=== PATIENT | female | born 1960 | race Caucasian/White ===

== ENCOUNTER 2016-12-28 15:47 | Emergency (ER) | payer OTHER ==
[~2016-12-28] VITALS: Ht 160 cm; Wt 78.5 kg
[~2016-12-28 15:47] MED LIST: DIAZ10TA89 PO; NAPR-260 PO; VICES PO
[2016-12-28 16:06] VITALS: Ht 160 cm; Wt 78.5 kg
[2016-12-28] MEDS ORDERED: KETOROLAC 30 MG INJ IM STA (16:39)
[2016-12-28] MEDS ORDERED: KETOROLAC 30 MG INJ IV STA (16:45)
[2016-12-28 17:04] LABS: ADD SCAN DIFF NO
[2016-12-28 17:05] LABS: BASOPHILS % 0.5 % (0.0-2.0); EOSINOPHILS # 0.3 10^3/ul (0.0-0.5); HEMOGLOBIN 12.7 g/dl (12.0-16.0); LYMPHOCYTES # 2.4 10^3/ul (0.8-2.9); LYMPHOCYTES % 32.3 % (15.0-51.0); MEAN CORPUSCULAR HEMOGLOBIN 29.4 pg (29.0-33.0); MEAN CORPUSCULAR HGB CONC 32.6 g/dl (32.0-37.0); MEAN CORPUSCULAR VOLUME 90.3 fl (82.0-101.0); MONOCYTE # 0.6 10^3/ul (0.3-0.9); NEUTROPHIL # 4.1 10^3/ul (1.6-7.5); NEUTROPHILS % 55.1 % (39.0-77.0); PLATELET COUNT 258 10^3/UL (140-415); RED BLOOD COUNT 4.32 10^6/ul (4.20-5.40); RED CELL DISTRIBUTION WIDTH 14.7 % (11.5-14.5); WHITE BLOOD COUNT 7.4 10^3/ul (4.8-10.8)
[2016-12-28 17:25] LABS: INR 0.91; PROTIME 12.3 Sec (12.2-14.2)
[2016-12-28 17:26] LABS: PARTIAL THROMBOPLASTIN TIME 28.5 Sec (25.0-35.0)
[2016-12-28 17:29] LABS: ANION GAP 14 (8-16); BLOOD UREA NITROGEN 12 mg/dl (7-20); CALCIUM 9.9 mg/dl (8.4-10.2); CARBON DIOXIDE 28 mmol/L (21-31); CHLORIDE 102 mmol/L (97-110); CREATININE 0.64 mg/dl (0.44-1.00); GLUCOSE 89 mg/dl (70-220); SODIUM 140 mmol/L (135-144)
[2016-12-28 17:41] LABS: ADD UMIC NO; UR ASCORBIC ACID NEGATIVE (NEGATIVE); UR BILIRUBIN (Dip) NEGATIVE (NEGATIVE); UR BLOOD (Dip) NEGATIVE (NEGATIVE); UR CLARITY CLEAR (CLEAR); UR COLOR COLORLESS (YELLOW); UR GLUCOSE (Dip) NEGATIVE (NEGATIVE); UR KETONES (Dip) NEGATIVE (NEGATIVE); UR LEUKOCYTE ESTERASE (Dip) NEGATIVE Leu/ul (NEGATIVE); UR NITRITE (Dip) NEGATIVE (NEGATIVE); UR SPECIFIC GRAVITY (Dip) 1.003 (1.003-1.030); UR TOTAL PROTEIN (Dip) NEGATIVE (NEGATIVE); UR UROBILINOGEN (Dip) NEGATIVE (NEGATIVE)
--- NOTE | 2016-12-28 17:47 | RADRPT ---
PROCEDURE: XR Chest. CLINICAL INDICATION: Chest pain TECHNIQUE: A single portable view of the chest was obtained. COMPARISON: None FINDINGS: The cardiomediastinal silhouette is within normal limits. The lungs and pleural spaces are clear. The soft tissues and osseous structures are unremarkable. IMPRESSION: No acute cardiopulmonary disease. RPTAT: HPNM Physician Gavino Date Time Electronically viewed and signed by Wiliam Pelayo Physician on 12/28/2016 17:47 /
[2016-12-28 18:06] LABS: TROPONIN-I < 0.012 ng/ml (0.00-0.12)
[2016-12-28] MEDS ORDERED: NAPR-688 PO (18:11)
[2016-12-28] MEDS ORDERED: CYCL-319 PO (18:11)
--- NOTE | 2016-12-28 18:20 | ERD ---
ER Documentation Chief Complaint Date/Time DATE: 12/28/16 TIME: 18:16 Chief Complaint neck pain x 3 days; sob HPI Patient is a 56-year-old female who presents with 3 days of right-sided neck pain radiates to her right upper extremity. She describes the pain as intermittent and sharp and worse with movement. Denies any numbness or tingling. She has not taken any medications for this. She denies any trauma. She also states that today she was driving in her car and she began to feel short of breath and had some chest pressure. She states that this happened before and she has seen her doctor and was told it was stressed. She does believe that it may be related to stress as she does feel stressed out and she is starting a new job on Friday. At this time she has no chest pain or shortness of breath. She denies any palpitations or diaphoresis. ROS All systems reviewed and are negative except as per history of present illness. Medications Home Meds Active Scripts Cyclobenzaprine Hcl* (Cyclobenzaprine Hcl*) 10 Mg Tablet, 10 MG PO QHS Y for MUSCLE SPASMS, #20 TAB Prov:CHANDA WORTHY PA-C 12/28/16 Naproxen* (Naproxen*) 500 Mg Tablet, 500 MG PO BID Y for PAIN, #30 TAB Prov:CHANDA WORTHY PA-C 12/28/16 Reported Medications Naproxen* (Naprosyn*) 500 Mg Tablet, 500 MG PO PRN 02/07/11 Diazepam (Valium) 10 Mg Tablet, 10 MG PO PRN HS 02/07/11 Acetaminophen/Hydrocodone (Vicodin Es) 1 Tab Tab, 1 TAB PO PRN 02/07/11 Allergies Allergies: Coded Allergies: ibuprofen (Verified Allergy, Mild, RASHES/"RED SPOTS" ALL OVER BODY, ) PMhx/Soc Medical and Surgical Hx: pt denies Medical Hx, pt denies Surgical Hx History of Surgery: Yes Anesthesia Reaction: No Hx Neurological Disorder: No Hx Respiratory Disorders: No Hx Cardiac Disorders: No Hx Psychiatric Problems: No Hx Miscellaneous Medical Probl: No Hx Alcohol Use: No Hx Substance Use: No Hx Tobacco Use: No Smoking Status: Never smoker FmHx Family History: No diabetes Physical Exam Vitals Vital Signs Date Time Temp Pulse Resp B/P Pulse Ox O2 Delivery O2 Flow Rate FiO2 12/28/16 16:06 98.5 78 18 133/75 98 Physical Exam General: well developed, well nourished, alert, nontoxic, no distress Head: normocephalic, atraumatic Eyes: PERRL, normal conjunctiva Neck: Supple, right-sided paraspinal tenderness, no lymphadenopathy, no midline tenderness Respiratory: Clear to auscaultation bilaterally, speaks in full sentences, no use of accesory muscles or labored breathing, no rales, ronchi, or wheezing Cardiovascular: RRR, No murmurs GI: soft, non tender, non distended, negative murphys sign, negative mcburneys point tenderness, no cva tenderness bilaterally, no rebound or guarding Back: no midline tenderness, no step offs or bony abnormalities, sensation to light touch in tact Result Diagram: 12/28/16 1605 12/28/16 1605 Results 24 hrs Laboratory Tests Test 12/28/16 16:05 12/28/16 16:35 White Blood Count 7.410^3/ul Red Blood Count 4.3210^6/ul Hemoglobin 12.7g/dl Hematocrit 39.0% Mean Corpuscular Volume 90.3fl Mean Corpuscular Hemoglobin 29.4pg Mean Corpuscular Hemoglobin Concent 32.6g/dl Red Cell Distribution Width 14.7% Platelet Count 22796^3/UL Mean Platelet Volume 10.0fl Neutrophils % 55.1% Lymphocytes % 32.3% Monocytes % 8.0% Eosinophils % 4.0% Basophils % 0.5% Nucleated Red Blood Cells % 0.0/100WBC Neutrophils # 4.110^3/ul Lymphocytes # 2.410^3/ul Monocytes # 0.610^3/ul Eosinophils # 0.310^3/ul Basophils # 0.010^3/ul Nucleated Red Blood Cells # 0.010^3/ul Prothrombin Time 12.3Sec Prothrombin Time Ratio 1.0 INR International Normalized Ratio 0.91 Activated Partial Thromboplast Time 28.5Sec Sodium Level 140mmol/L Potassium Level 4.0mmol/L Chloride Level 102mmol/L Carbon Dioxide Level 28mmol/L Anion Gap 14 Blood Urea Nitrogen 12mg/dl Creatinine 0.64mg/dl Glucose Level 89mg/dl Calcium Level 9.9mg/dl Troponin I < 0.012ng/ml Urine Color COLORLESS Urine Clarity CLEAR Urine pH 6.0 Urine Specific [place] 1.003 Urine Ketones NEGATIVEmg/dL Urine Nitrite NEGATIVEmg/dL Urine Bilirubin NEGATIVEmg/dL Urine Urobilinogen NEGATIVEmg/dL Urine Leukocyte Esterase NEGATIVELeu/ul Urine Hemoglobin NEGATIVEmg/dL Urine Glucose NEGATIVEmg/dL Urine Total Protein NEGATIVEmg/dl Current Medications Medications (Trade) Dose Ordered Sig/Chitra Route PRN Reason Start Time Stop Time Status Last Admin Dose Admin Ketorolac Tromethamine (Toradol) 30 mg ONCE STAT IM 12/28/16 16:39 12/28/16 16:40 Cancel Ketorolac Tromethamine (Toradol) 30 mg ONCE STAT IV 12/28/16 16:45 12/28/16 16:46 DC 12/28/16 16:50 Procedures/MDM Patient presents with neck and right upper extremity pain is most likely cervical radiculopathy. There is no trauma. She is neurovascular intact. She did state that earlier today when she was driving she had an episode where she felt some chest pressure and shortness of breath. She thinks it may be related to stress that she is starting a new job on Friday and has had a history of anxiety in the past. EKG was performed which was within normal limits with no evidence of ST elevation or acute ischemic changes with a rate of 66. All her blood work was unremarkable including troponin which was negative. Patient was given Toradol and at discharge she stated she has much relief of her neck pain with the Toradol. I do believe this is most likely musculoskeletal and stress related and less suspicious for cardiac etiology. She is discharged with anti- inflammatories and muscle relaxer. Recommended this patient follow up with her primary care doctor within 48 hours or return to the emergency room for any worsening of symptoms. However this time I do believe there is suitable for outpatient management. I answered all their questions and they agreed with the plan and were discharged home. Departure Diagnosis: Primary Impression: Cervical radiculopathy Additional Impression: Anxiety Condition: Stable Patient Instructions: Anxiety Reaction, Neck Pain, No Trauma Additional Instructions: Llame al doctor MAANA y jonathan joana ISABELLE PARA DENTRO DE 1-2 GRAHAM.Dgale a la secretaria que nosotros le instruimos hacer esta isabelle.Avise o llame si jones condicin se empeora antes de la isabelle. Regresa aqui si peor o no mejor. CHANDA WORTHY PA-C Dec 28, 2016 18:20
[2016-12-28 18:26] VITALS: BP 143/74; PULSE 60; RESP 18; TEMP 98
== END 2016-12-28 18:20 | disposition home or self-care (01) ==
LOC: FTE 15:47
DX: M54.12 Radiculopathy, cervical region (principal); F41.9 Anxiety disorder, unspecified; R07.9 Chest pain, unspecified
CPT/HCPCS: 36415; 71010; 80048; 81003; 84484; 85025; 85610; 85730; 93005; 96374; J1885; Z7502

== ENCOUNTER 2017-04-02 13:28 | Day surgery (SDC) | payer OTHER ==
[~2017-04-02] VITALS: Ht 157.5 cm; Wt 76.4 kg
[~2017-04-02 13:28] MED LIST changes: +CYCL-319 PO; +NAPR-688 PO
[2017-04-02 14:22] VITALS: Ht 157.5 cm; Wt 76.4 kg
[2017-04-02] MEDS ORDERED: LEVO25TA53 PO (14:29)
[2017-04-02] MEDS ORDERED: ATOR10TA65 PO (14:29)
[2017-04-02 15:16] VITALS: BP 117/54; PULSE 64; RESP 20
[2017-04-02] MEDS ORDERED: MIDAZOLAM 1 MG/ML 2 ML INJ ONE ×3 (15:58→15:59)
--- NOTE | 2017-04-02 15:58 | OPPN ---
Date/Time of Note Date/Time of Note DATE: 04/02/17 TIME: 15:53 Proc Note GI Procedure Date 04/02/17 Pre-procedure Diagnosis * Colorectal cancer screening Post-procedure Diagnosis Impression: * Normal colonic mucosa to cecum * Moderate size internal hemorrhoids Plan: * High fiber diet * Annual hemoccult testing * Colonoscopy in 10 years . Procedure Performed: Colonoscopy Surgeon JOSUE MONAHAN MD Singing Telegram Performer none Anesthesia Type: moderate sedation (Versed 5mg/Fentanyl 75mg IVP) Tourniquet Time none EBL none Transfusion required none Grafts/Implants none Tubes/Drains none Complication(s) none Pt Condition post procedure: stable Disposition: home Indications: screening/surveillance Procedure Description After informed consent, with the patient/relatives understanding the procedure, its indications and potential risks and complications, including but not limited to: Allergic reaction, bleeding, perforation, infection, and after all pertinent questions were answered to the patient's satisfaction, the patient/ relatives signed the witnessed informed consent. Following this, premedication was administered slowly IV push under careful cardiovascular and respiratory monitoring with pulse OXIMETRY, automatic blood pressure, and display artist. Once the sedative effect was achieved, the patient was placed in the left lateral decubitus position, digital rectal examination was performed. The colonoscope was then introduced and advanced under visual control throughout all segments of the colon including: the rectum, sigmoid, descending colon, splenic flexure, transverse colon, hepatic flexure, ascending colon and finally reaching the cecum which was clearly identified by transillumination, finger indentation and the ileocecal valve. Careful examination of the mucosa of the lower gastrointestinal tract both on insertion as well as withdrawal of the instrument disclosed the following findings: PREPARATION QUALITY: [Adequate], RECTAL EXAM: The anorectal area was visualized examined and digital rectal examination performed with the following findings: No evidence of perirectal disease, no masses. COLONIC MUCOSA: The mucosa of all segments of the colon was carefully examined and showed the following findings: the examined mucosa appears within normal limits. There is no evidence of inflammatory changes, diverticular formation, polyps or other neoplasms, vascular malformation, or any other abnormality. Moderate size internal hemorrhoids The instrument was then withdrawn, the patient tolerated the procedure well and was transferred out of the Endoscopy Suite awake and in good condition to continue recovery under observation. Copies To: CC: JOSUE MONAHAN MD, MORDO MD Apr 02, 2017 15:58
[2017-04-02] MEDS ORDERED: FENTAnyl 50 MCG/ML VIAL ONE (15:59)
[2017-04-02 16:25] VITALS: BP 99/52; PULSE 60; RESP 14
== END 2017-04-02 16:00 | disposition home or self-care (01) ==
LOC: GIL 13:28
PROVIDERS: ATTEND Internal Medicine Gastroenterology
DX: Z12.11 Encounter for screening for malignant neoplasm of colon (principal); K64.8 Other hemorrhoids; E07.9 Disorder of thyroid, unspecified; E78.00 Pure hypercholesterolemia, unspecified; M19.90 Unspecified osteoarthritis, unspecified site; R19.5 Other fecal abnormalities; Z87.891 Personal history of nicotine dependence
CPT/HCPCS: 45378; J2250; J3010

== ENCOUNTER 2017-06-13 20:44 | Emergency (ER) | payer OTHER ==
[~2017-06-13] VITALS: Ht 167.6 cm; Wt 77.3 kg
[~2017-06-13 20:44] MED LIST changes: +ATOR10TA65 PO; -CYCL-319 PO; -DIAZ10TA89 PO; +LEVO25TA53 PO; -NAPR-688 PO; -VICES PO
[2017-06-13 20:47] VITALS: Ht 167.6 cm; Wt 77.3 kg
[2017-06-13] MEDS ORDERED: HYDROCODONE/APAP (5/325) TAB PO ONE (23:00)
--- NOTE | 2017-06-13 23:08 | RADRPT ---
PROCEDURE: Chest. CLINICAL INDICATION: Cough. TECHNIQUE: Single frontal view of the chest was obtained. COMPARISON: None. FINDINGS: The cardiac silhouette is within normal limits. The aortic arch is unremarkable. There is no focal consolidation, vascular congestion or pleural effusion. There is no pneumothorax. IMPRESSION: No evidence for active cardiopulmonary disease. .Karl Childers MD, Date Time Electronically viewed and signed by .Karl Childers MD, on 06/13/2017 23:07 .T/
--- NOTE | 2017-06-13 23:09 | RADRPT ---
PROCEDURE: Thoracic spine. CLINICAL INDICATION: Back pain. TECHNIQUE: Three views including AP and lateral views were obtained. COMPARISON: None. FINDINGS: There is no acute fracture or subluxation. Thoracic vertebral body heights and alignment are within normal limits. Intervertebral disk spaces are within normal limits. There are small marginal osteo phytes at multiple levels. IMPRESSION: No evidence of fracture or subluxation. Mild enthesopathy. .Karl Childers MD, MD Date Time Electronically viewed and signed by .Karl Childers MD, on 06/13/2017 23:09 .T/
[2017-06-13 23:37] LABS: BASOPHIL # 0.1 10^3/ul (0.0-0.1); BASOPHILS % 0.5 % (0.0-2.0); EOSINOPHILS # 0.5 10^3/ul (0.0-0.5); EOSINOPHILS % 5.5 % (0.0-7.0); HEMATOCRIT 34.8 % (37.0-47.0); HEMOGLOBIN 11.6 g/dl (12.0-16.0); LYMPHOCYTES # 2.5 10^3/ul (0.8-2.9); LYMPHOCYTES % 27.3 % (15.0-51.0); MEAN CORPUSCULAR HEMOGLOBIN 30.1 pg (29.0-33.0); MEAN CORPUSCULAR HGB CONC 33.3 g/dl (32.0-37.0); MEAN CORPUSCULAR VOLUME 90.2 fl (82.0-101.0); MEAN PLATELET VOLUME 9.8 fl (7.4-10.4); MONOCYTE # 0.6 10^3/ul (0.3-0.9); MONOCYTES % 6.6 % (0.0-11.0); NEUTROPHIL # 5.5 10^3/ul (1.6-7.5); PLATELET COUNT 261 10^3/UL (140-415); RED BLOOD COUNT 3.86 10^6/ul (4.20-5.40); RED CELL DISTRIBUTION WIDTH 13.7 % (11.5-14.5); WHITE BLOOD COUNT 9.1 10^3/ul (4.8-10.8)
[2017-06-13 23:54] LABS: ANION GAP 12 (8-16); BLOOD UREA NITROGEN 27 mg/dl (7-20); CALCIUM 9.5 mg/dl (8.4-10.2); CARBON DIOXIDE 30 mmol/L (21-31); CHLORIDE 102 mmol/L (97-110); CREATININE 0.76 mg/dl (0.44-1.00); GLUCOSE 98 mg/dl (70-220); POTASSIUM 4.5 mmol/L (3.5-5.1); SODIUM 139 mmol/L (135-144)
[2017-06-14 00:10] LABS: TROPONIN-I < 0.012 ng/ml (0.00-0.12)
--- NOTE | 2017-06-14 00:18 | ERD ---
ER Documentation Chief Complaint Chief Complaint cough w/ chest congestion, nasal congestion, dizzy today HPI This is a 56-year-old female presenting to the emergency department for cough, chest congestion, nasal congestion and chest wall pain with cough. Patient states she has chest wall pain that worsens with coughing. Patient describes pain as sharp and rates pain 5/10. Patient states chest wall pain radiates to upper back. Patient states she has had nonproductive cough. 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 Denies fevers or chills. No shortness of breath or difficulty breathing. No wheezing. No heart palpitations or chest pressure. Patient did not take any medications for pain. Patient also states she developed dizziness starting today. Dizziness is intermittent. No headache, loss of consciousness or syncopal episode. No vision changes. No changes in mood or behavior. ROS All systems reviewed and are negative except as per history of present illness. Medications Home Meds Active Scripts Acetaminophen with Codeine (Acetaminophen-Cod #3 Tablet) 1 Each Tablet, 1 TAB PO Q6H Y for PAIN, #7 TAB Prov:MIGUEL A SALINAS NP 06/14/17 Reported Medications Atorvastatin Calcium (Atorvastatin Calcium) 10 Mg Tablet, 10 MG PO QHS, #30 TAB 04/02/17 Levothyroxine Sodium* (Levothyroxine Sodium*) 25 Mcg Tablet, 25 MCG PO BEFORE BREAKFAST, #30 TAB 04/02/17 Naproxen* (Naprosyn*) 500 Mg Tablet, 500 MG PO PRN 02/07/11 Allergies Allergies: Coded Allergies: ibuprofen (Verified Allergy, Mild, RASHES/"RED SPOTS" ALL OVER BODY, ) PMhx/Soc History of Surgery: Yes (OVARY REMOVAL SURGERY, LIPO, LOWER BACK SURGERY) Anesthesia Reaction: No Hx Neurological Disorder: No Hx Respiratory Disorders: No Hx Cardiac Disorders: No Hx Psychiatric Problems: No Hx Miscellaneous Medical Probl: Yes (HYPERLIPIDEMIA) Hx Alcohol Use: No Hx Substance Use: No Hx Tobacco Use: No Smoking Status: Never smoker Physical Exam Vitals Vital Signs Date Time Temp Pulse Resp B/P Pulse Ox O2 Delivery O2 Flow Rate FiO2 06/14/17 01:52 97.7 78 20 134/66 99 Room Air 06/13/17 20:47 97.1 70 20 143/79 99 Physical Exam Const: No acute distress, alert Head: Atraumatic Eyes: Normal Conjunctiva ENT: Normal External Ears, Nose and Mouth. No erythema or exudate posterior pharynx. TMs normal bilaterally. Neck: Full range of motion..~ No meningismus. Resp: Clear to auscultation bilaterally. No wheezing, rhonchi or crackles. No stridor or labored breathing. No stridor or labored breathing. Patient is talking in complete sentences. Cardio: Regular rate and rhythm, no murmurs Abd: Soft, non tender, non distended. Normal bowel sounds Skin: No petechiae or rashes Back: No midline or flank tenderness Ext: No cyanosis, or edema Neur: Awake and alert Psych: Normal Mood and Affect Result Diagram: 06/13/17230906/13/172309 Results 24 hrs Laboratory Tests Test 06/13/17 23:10 White Blood Count 9.110^3/ul Red Blood Count 3.8610^6/ul Hemoglobin 11.6g/dl Hematocrit 34.8% Mean Corpuscular Volume 90.2fl Mean Corpuscular Hemoglobin 30.1pg Mean Corpuscular Hemoglobin Concent 33.3g/dl Red Cell Distribution Width 13.7% Platelet Count 33516^3/UL Mean Platelet Volume 9.8fl Neutrophils % 60.0% Lymphocytes % 27.3% Monocytes % 6.6% Eosinophils % 5.5% Basophils % 0.5% Nucleated Red Blood Cells % 0.0/100WBC Neutrophils # 5.510^3/ul Lymphocytes # 2.510^3/ul Monocytes # 0.610^3/ul Eosinophils # 0.510^3/ul Basophils # 0.110^3/ul Nucleated Red Blood Cells # 0.010^3/ul Sodium Level 139mmol/L Potassium Level 4.5mmol/L Chloride Level 102mmol/L Carbon Dioxide Level 30mmol/L Anion Gap 12 Blood Urea Nitrogen 27mg/dl Creatinine 0.76mg/dl Glucose Level 98mg/dl Calcium Level 9.5mg/dl Troponin I < 0.012ng/ml Current Medications Medications (Trade) Dose Ordered Sig/Chitra Route PRN Reason Start Time Stop Time Status Last Admin Dose Admin Acetaminophen/ Hydrocodone Bitart ([place] (5/325)) 1 tab ONCE ONCE PO 06/13/17 23:00 06/13/17 23:01 DC Ketorolac Tromethamine (Toradol) 30 mg ONCE STAT IM 06/14/17 01:05 06/14/17 01:06 DC 06/14/17 01:12 Procedures/MDM Patient: YAKOV MCKEON : 1960 Age: 56 Sex: F MR #: [id number] DOS: 06/13/17 2227 Ordering MD: MIGUEL A PATTERSON NP Location: [facility] Room/Bed: PROCEDURE: Chest. CLINICAL INDICATION: Cough. TECHNIQUE: Single frontal view of the chest was obtained. COMPARISON: None. FINDINGS: The cardiac silhouette is within normal limits. The aortic arch is unremarkable. There is no focal consolidation, vascular congestion or pleural effusion. There is no pneumothorax. IMPRESSION: No evidence for active cardiopulmonary disease. Patient: YAKOV MCKEON : 1960 Age: 56 Sex: F MR #: [id number] DOS: 06/13/17 2240 Ordering MD: MIGUEL A PATTERSON NP Location: [facility] Room/Bed: PROCEDURE: Thoracic spine. CLINICAL INDICATION: Back pain. TECHNIQUE: Three views including AP and lateral views were obtained. COMPARISON: None. FINDINGS: There is no acute fracture or subluxation. Thoracic vertebral body heights and alignment are within normal limits. Intervertebral disk spaces are within normal limits. There are small marginal osteophytes at multiple levels. IMPRESSION: No evidence of fracture or subluxation. Mild enthesopathy. EKG: As interpreted by myself and Dr. Lennon Rate/Rhythm: Normal sinus rhythm with heart rate 62 bpm QRS, ST, T-waves: No changes consistent w/ acute ischemia Impression: No evidence of ischemia or arrhythmia MDM: 56 year old female presents with cough, chest congestion, chest wall pain , and dizziness. CBC, BMP, troponin EKG ordered. CBC shows no significant anemia or infection. BMP shows no significant electrolyte imbalance. Normal glucose. Normal creatinine and BUN. Troponin is negative. Chest x-ray reviewed by radiologist as no evidence for active cardiopulmonary disease. X- ray thoracic spine shows no evidence of fracture or subluxation. Mild enthesopathy. Patient given Toradol 30 mg IM while in the ED. Upon reassessment, patient states pain has improved. Patient remains afebrile and vital signs remained stable. Consulted Dr. Stewart regarding this patient and we agree that patient is appropriate for outpatient management. Patient is alert, nontoxic and non-hypoxic appearing. Low suspicion for pneumonia, pleural effusion, pneumothorax or acute LA. Differential diagnosis includes but not limited to URI, influenza, otitis media , otitis externa, asthma exacerbation, croup, bronchitis, bronchiolitis and costochondritis. Patient is appropriate for outpatient management and will be given prescription for Tylenol 3 #7. Instructed patient to follow-up with primary care provider in the next 2-3 days for reassessment and additional management. Return to ED for any high fever, chest pain, difficulty breathing, shortness breath, wheezing , vomiting, diarrhea, abdominal pain or any new or worsening symptoms. Patient verbalizes understanding. All questions answered at discharge. Disclaimer: Inadvertent spelling and grammatical errors are likely due to EHR/ dictation software use and do not reflect on the overall quality of patient care. Also, please note that the electronic time recorded on this note does not necessarily reflect the actual time of the patient encounter. Departure Diagnosis: Primary Impression: URI (upper respiratory infection) URI type: unspecified viral URI Qualified Code: J06.9 - Viral upper respiratory tract infection Additional Impression: Chest wall pain Condition: Stable MIGUEL A SALINAS NP Jun 14, 2017 00:18
[2017-06-14] MEDS ORDERED: KETOROLAC 30 MG INJ IM STA (01:05)
[2017-06-14] MEDS ORDERED: ACET1TAB40 PO (01:31)
[2017-06-14 01:52] VITALS: BP 134/66; PULSE 78; RESP 20; TEMP 97.7
== END 2017-06-14 01:52 | disposition home or self-care (01) ==
LOC: FTE 20:44
DX: J06.9 Acute upper respiratory infection, unspecified (principal); R07.89 Other chest pain
CPT/HCPCS: 36415; 71010; 72072; 80048; 84484; 85025; 96372; J1885; Z7502; 93005

== ENCOUNTER 2017-06-22 15:38 | Emergency (ER) | payer OTHER ==
[~2017-06-22] VITALS: Ht 157.5 cm; Wt 78.0 kg
[~2017-06-22 15:38] MED LIST changes: +ACET1TAB40 PO
[2017-06-22 15:50] VITALS: Ht 157.5 cm; Wt 78.0 kg
[2017-06-22] MEDS ORDERED: ACETAMINOPHEN 325 MG TAB PO ONE (18:30)
--- NOTE | 2017-06-22 19:13 | RADRPT ---
PROCEDURE: XR Chest. CLINICAL INDICATION: Fever. TECHNIQUE: Single frontal view of the chest was obtained COMPARISON: Chest radiograph dated December 28, 2016. FINDINGS: The heart and mediastinum are within normal limits. The lungs are clear. There is no pleural effusion or pneumothorax. The osseous structures are unremarkable. IMPRESSION: 1. No acute cardiopulmonary disease. RPTAT:AAJJ Physician Katherine Date Time Electronically viewed and signed by Physician Katherine on 06/22/2017 19:12 QL/
--- NOTE | 2017-06-22 19:24 | RADRPT ---
PROCEDURE: XR Shoulder. CLINICAL INDICATION: Left shoulder pain. Fever TECHNIQUE: 3 views of the left shoulder were obtained. COMPARISON: None FINDINGS: No acute fracture or dislocation is seen. The glenohumeral joint and acromioclavicular joint are wi thin normal limits. The osseous structures are well mineralized. The soft tissue structures are in tact. The visualized portions of the left clavicle andchest appear unremarkable. IMPRESSION: No evidence of an acute abnormality. RPTAT: HPNM Physician Gavino Date Time Electronically viewed and signed by Wiliam Pelayo Physician on 06/22/2017 19:24 /
[2017-06-22] MEDS ORDERED: ACET500C5 PO (19:26)
[2017-06-22] MEDS ORDERED: OSLT75C PO (19:26)
--- NOTE | 2017-06-22 19:30 | ERD ---
ER Documentation Chief Complaint Chief Complaint flu like symptoms x 3 days HPI This 56-year-old female presents with 2 day history of fever and cough. She is chest pain while coughing and deep breathing. She has vomiting, abdominal pain , diarrhea, urinary complaints, neck stiffness. Patient is an additional complaint left shoulder pain for last several weeks. She has restricted range of motion due to pain but no weakness. She denies any fevers, or redness. ROS All systems reviewed and are negative except as per history of present illness. Medications Home Meds Active Scripts Tramadol HCl (Tramadol HCl) 50 Mg Tablet, 50 MG PO Q4 Y for PAIN, #20 TAB Prov:DORA SHETTY MD 06/22/17 Oseltamivir Phosphate* (Tamiflu*) 75 Mg Capsule, 75 MG PO BID for 5 Days, CAP Prov:DORA SHETTY MD 06/22/17 Acetaminophen* (Tylophen*) 500 Mg Capsule, 1 CAP PO Q6H Y for PAIN AND OR ELEVATED TEMP, #15 CAP Prov:DORA SHETTY MD 06/22/17 Acetaminophen with Codeine (Acetaminophen-Cod #3 Tablet) 1 Each Tablet, 1 TAB PO Q6H Y for PAIN, #7 TAB Prov:MIGUEL A SALINAS NP 06/14/17 Reported Medications Atorvastatin Calcium (Atorvastatin Calcium) 10 Mg Tablet, 10 MG PO QHS, #30 TAB 04/02/17 Levothyroxine Sodium* (Levothyroxine Sodium*) 25 Mcg Tablet, 25 MCG PO BEFORE BREAKFAST, #30 TAB 04/02/17 Naproxen* (Naprosyn*) 500 Mg Tablet, 500 MG PO PRN 02/07/11 Allergies Allergies: Coded Allergies: ibuprofen (Verified Allergy, Mild, RASHES/"RED SPOTS" ALL OVER BODY, 06/22) PMhx/Soc History of Surgery: Yes (OVARY REMOVAL SURGERY, LIPO, LOWER BACK SURGERY, bladder prolapse) Anesthesia Reaction: No Hx Neurological Disorder: No Hx Respiratory Disorders: No Hx Cardiac Disorders: No Hx Psychiatric Problems: No Hx Miscellaneous Medical Probl: Yes (HYPERLIPIDEMIA) Hx Alcohol Use: No Hx Substance Use: No Hx Tobacco Use: No Physical Exam Vitals Vital Signs Date Time Temp Pulse Resp B/P Pulse Ox O2 Delivery O2 Flow Rate FiO2 06/22/17 19:21 100.3 06/22/17 18:14 101.6 06/22/17 15:50 101.1 121 18 123/80 98 Physical Exam Const: [] Head: Atraumatic Eyes: Normal Conjunctiva ENT: Normal External Ears, Nose and Mouth. Neck: Full range of motion..~ No meningismus. Resp: Clear to auscultation bilaterally. Dry cough without rales, wheezing or retractions per Cardio: Regular rate and rhythm, no murmurs Abd: Soft, non tender, non distended. Normal bowel sounds Skin: No petechiae or rashes Back: No midline or flank tenderness Ext: No cyanosis, or edema Neur: Awake and alert Psych: Normal Mood and Affect Results 24 hrs Current Medications Medications (Trade) Dose Ordered Sig/Chitra Route PRN Reason Start Time Stop Time Status Last Admin Dose Admin Acetaminophen (Tylenol Tab) 650 mg ONCE ONCE PO 06/22/17 18:30 06/22/17 18:31 DC 06/22/17 18:17 Lidocaine (Xylocaine 1% (Mdv) 20 ml) 20 ml ONCE ONCE SC 06/22/17 20:30 06/22/17 20:31 06/22/17 20:06 Procedures/MDM Chest X-ray 1V Interpreted by me: Soft Tissue: No acute abnormalities Bones: No acute abnormalities Mediastinum/Cardiac Silhouette/Lungs: [No acute abnormalities]. Impression- normal 1 view chest x-ray EKG: Rate/Rhythm: [Normal Sinus Rhythm] rate equals 98 QRS, ST, T-waves: [No changes consistent w/ acute ischemia] Impression: [No evidence of ischemia or arrhythmia]. Impression-normal EKG. X-ray left shoulder 3V Interpreted by me: Bones: No fracture Joints: No dislocation Foreign body: None impression-no acute findings in the left shoulder x-ray Patient is requesting a left shoulder cortisone injection. Patient was advised of the risks and benefits of steroid injection including atrophy, infection, adverse medication reaction. Patient wishes to proceed. Via sterile technique the left shoulder was injected with 20 mg Kenalog, 2 cc Marcaine 3 cc lidocaine. Patient tolerated procedure well and the wound was dressed. Patient will be given a prescription tramadol for her left shoulder rotator cuff tendinitis. There is no evidence of septic arthritis, ischemia, fracture, dislocation. She was given Tylenol for fever. Patient has signs and symptoms of febrile illness URI symptoms, possibly influenza. Patient has no signs of hypoxemia or respiratory distress. She will be treated with Tamiflu, Robitussin and Tylenol. The patient was stable with no new complaints during the ER course. Clinically, there is no current evidence to suggest meningitis, sepsis, acute abdomen, pneumonia, acute coronary syndrome, pulmonary embolism, or any other emergent condition appearing to require further evaluation or hospitalization. The patient should certainly return for any new or worsening symptoms per the aftercare instructions. They should otherwise follow-up with her primary care doctor for reevaluation this week. Departure Diagnosis: Primary Impression: Fever Fever type: unspecified Qualified Code: R50.9 - Fever, unspecified fever cause Additional Impression: Upper respiratory infection URI type: unspecified URI Qualified Code: J06.9 - Upper respiratory tract infection, unspecified type Condition: Stable Patient Instructions: Fever Control (Adult), Influenza (Adult), Uri, Viral, No Abx (Adult) Additional Instructions: X-ray normal. Probablamente un virus que dura 2-4 graham. cheque otro vez en el proximo sander para mas simptomas- vomito, dolor, harrison, problemas con respirando , o con jones doctor primario. DORA SHETTY MD Jun 22, 2017 19:30
[2017-06-22] MEDS ORDERED: TRAM50TA2 PO (20:13)
[2017-06-22] MEDS ORDERED: LIDOCAINE 1% (MDV) 20 ML INJ SC ONE (20:30)
[2017-06-22 21:00] VITALS: BP 108/62; PULSE 95; RESP 19; TEMP 99.2
== END 2017-06-22 21:00 | disposition home or self-care (01) ==
LOC: FTE 15:38
DX: J06.9 Acute upper respiratory infection, unspecified (principal)
CPT/HCPCS: 71010; 73030; 93005; Z7502; Z7610